=== PATIENT | female | born 1970 | race African-American/Black ===

== ENCOUNTER 2016-12-19 13:44 | Emergency (ER) | payer BC ==
[~2016-12-19] VITALS: Wt 90.0 kg
[~2016-12-19 13:44] MED LIST: AMIT25TA9 PO; BENA20TA48 PO; BENZ2TAB37 PO; GABA-528 PO; HAL5 PO; INSU100I17 SQ; LANT3I SC; QUET400T PO; SIMV40TA2 PO
[2016-12-19 13:53] VITALS: Wt 90.0 kg
[2016-12-19] MEDS ORDERED: GABAPENTIN 300 MG CAP PO ONE (16:00)
[2016-12-19] MEDS ORDERED: traMADol 50 MG TAB PO ONE (16:00)
[2016-12-19 16:03] LABS: ADD SCAN DIFF NO
[2016-12-19 16:16] LABS: BASOPHILS % 0.5 % (0.0-2.0); EOSINOPHILS # 0.1 10^3/ul (0.0-0.5); EOSINOPHILS % 0.6 % (0.0-7.0); HEMATOCRIT 46.5 % (37.0-47.0); HEMOGLOBIN 15.3 g/dl (12.0-16.0); LYMPHOCYTES # 3.3 10^3/ul (0.8-2.9); LYMPHOCYTES % 38.2 % (15.0-51.0); MEAN CORPUSCULAR HEMOGLOBIN 31.2 pg (29.0-33.0); MEAN CORPUSCULAR HGB CONC 32.9 g/dl (32.0-37.0); MEAN CORPUSCULAR VOLUME 94.9 fl (82.0-101.0); MEAN PLATELET VOLUME 11.8 fl (7.4-10.4); MONOCYTE # 0.4 10^3/ul (0.3-0.9); MONOCYTES % 4.1 % (0.0-11.0); NEUTROPHIL # 4.9 10^3/ul (1.6-7.5); NEUTROPHILS % 56.5 % (39.0-77.0); PLATELET COUNT 163 10^3/UL (140-415); RED CELL DISTRIBUTION WIDTH 12.2 % (11.5-14.5); WHITE BLOOD COUNT 8.6 10^3/ul (4.8-10.8)
[2016-12-19 16:20] LABS: ALBUMIN 4.3 g/dl (3.3-4.9); CHLORIDE 100 mmol/L (97-110)
[2016-12-19 16:21] LABS: POTASSIUM 4.3 mmol/L (3.5-5.1); SODIUM 141 mmol/L (135-144)
[2016-12-19 16:23] LABS: ANION GAP 22 (8-16); ASPARTATE AMINO TRANSFERASE 16 IU/L (15-46); BILIRUBIN,INDIRECT 0.3 mg/dl (0-1.1); BILIRUBIN,TOTAL 0.3 mg/dl (0.2-1.3); CARBON DIOXIDE 23 mmol/L (21-31); CREATININE 0.76 mg/dl (0.44-1.00)
[2016-12-19 16:24] LABS: ALANINE AMINOTRANSFERASE 15 IU/L (13-69); ALBUMIN/GLOBULIN RATIO 0.86; ALKALINE PHOSPHATASE 91 IU/L (42-121); BLOOD UREA NITROGEN 8 mg/dl (7-20); GLUCOSE 358 mg/dl (70-220); TOTAL PROTEIN 9.3 g/dl (6.1-8.1)
[2016-12-19 16:25] LABS: ACETAMINOPHEN < 10.0 ug/ml (10.0-30.0); ETHANOL < 10.0 mg/dl; SALICYLATE < 1.0 mg/dl (5.0-30.0)
[2016-12-19] MEDS ORDERED: ATOR40TA68 PO (16:33)
[2016-12-19] MEDS ORDERED: APIX5TAB PO (16:34)
[2016-12-19] MEDS ORDERED: AMIT25TA9 PO (16:35)
[2016-12-19] MEDS ORDERED: TRAM-40 PO (16:35)
[2016-12-19] MEDS ORDERED: ZIPR60CA6 PO (16:36)
[2016-12-19] MEDS ORDERED: HAL5 PO (17:44)
[2016-12-19] MEDS ORDERED: ZIPR80CA22 PO (17:44)
[2016-12-19] MEDS ORDERED: BENZ2TAB37 PO (17:45)
--- NOTE | 2016-12-19 17:49 | PSY ---
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 no plan no etoh History of present illness 46 yo disabled AAF with hx schizophrenia BIB sister c/o derogatory AH; pt adamantly denies any SI. She says, for some reason her pharmacy did not dispense her psych meds to her (Geodon, Haldol, cogentin) and pt started hearing vocies again. She has been off meds for a week. She denies Vh, admits to some paranoia, denies overt depression, denies HI, sleep is restless. Past psychiatric history last inpt was 5 years ago Hospitalization: Suicidal Attempt(s) Family History denies Medical history Problems Medical Problems: (1) Chest pain Status: Acute (2) Depression Status: Acute (3) Dermatitis Status: Acute (4) Dyspnea Status: Acute (5) Hypokalemia Status: Acute (6) Neuropathic pain Status: Acute (7) Tachycardia Status: Acute Allergies: Coded Allergies: codeine (Verified Allergy, Unknown, 12/19/16) penicillin (Verified Allergy, Unknown, hives, 12/19/16) Substance Abuse Substance use: No known substance abuse Social History Marital status: single Level of education: GED DPA/Conservatorship: No Occupation/Fdc: on ssi Psychiatric Objective Eval Physical Examination: Sleep: Insomnia Appetite: Adequate Energy: Adequate Interest: Adequate Mental Status Examination: Appearance: Groomed Eye Contact: Good Psychomotor Activity: Normal Behavior: Cooperative Speech: Clear AFFECT: Appropriate Mood: Anxious Though Process: Linear Thought Content: Hallucinations Suicidal: No Homicidal: No On 72 hour hold: No Orientation: x4 Cognition: Alert Insight: Intact Judgement: Intact Laboratory Results Laboratory Tests Test 12/19/16 15:50 Acetaminophen Level < 10.0ug/ml Alanine Aminotransferase (ALT/SGPT) 15IU/L Albumin 4.3g/dl Albumin/Globulin Ratio 0.86 Alkaline Phosphatase 91IU/L Anion Gap 22 Aspartate Amino Transf (AST/SGOT) 16IU/L Basophils # 0.010^3/ul Basophils % 0.5% Blood Urea Nitrogen 8mg/dl Calcium Level 10.0mg/dl Carbon Dioxide Level 23mmol/L Chloride Level 100mmol/L Creatinine 0.76mg/dl Direct Bilirubin 0.00mg/dl Eosinophils # 0.110^3/ul Eosinophils % 0.6% Ethyl Alcohol Level < 10.0mg/dl Globulin 5.00g/dl Glucose Level 358mg/dl Hematocrit 46.5% Hemoglobin 15.3g/dl Indirect Bilirubin 0.3mg/dl Lymphocytes # 3.310^3/ul Lymphocytes % 38.2% Mean Corpuscular Hemoglobin 31.2pg Mean Corpuscular Hemoglobin Concent 32.9g/dl Mean Corpuscular Volume 94.9fl Mean Platelet Volume 11.8fl Monocytes # 0.410^3/ul Monocytes % 4.1% Neutrophils # 4.910^3/ul Neutrophils % 56.5% Nucleated Red Blood Cells # 0.010^3/ul Nucleated Red Blood Cells % 0.0/100WBC Platelet Count 13735^3/UL Potassium Level 4.3mmol/L Red Blood Count 4.9010^6/ul Red Cell Distribution Width 12.2% Salicylates Level < 1.0mg/dl Sodium Level 141mmol/L Total Bilirubin 0.3mg/dl Total Protein 9.3g/dl White Blood Count 8.610^3/ul Assessment and Plan Assessment/Diagnosis Marshall I: chronic paranoid schizophrenia Marshall II: defered Marshall III: as per record Marshall IV: moderate Marshall V: gaf 45 Recommendation/Plan Medication Management To RN: Please kindly verify the doses or pt's meds at her pharmacy. D/W Dr Gipson : consider providing 3 days supply of pt's meds from hospital pharmacy. If not doses available, please provide Geodon 60 mg po bid, Haldol 10 mg poqhs and Cogentin 1 mg po tid. Please provide rx for 10 days supply as well. Psychotherapy defer to outpt Follow-up/Disposition no dts, dto, gd, pt can be discharged home. BLAS ZABALA MD Dec 19, 2016 17:49
[2016-12-19 18:08] LABS: BARBITURATES Negative (NEGATIVE); BENZODIAZEPINES Negative (NEGATIVE); CANNABINOIDS Negative (NEGATIVE); COCAINE Negative (NEGATIVE); OPIATES Negative (NEGATIVE)
[2016-12-19 18:09] VITALS: BP 123/87; PULSE 85; RESP 16
--- NOTE | 2016-12-19 19:41 | ERA ---
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 She does not have any plan, denies auditory, visual hallucination, homicidal or suicidal ideation. She denies neck pain, chest pain, dyspnea, abdominal pain, vomiting, dysuria, diarrhea. She smokes half a pack a day, denies drinking or using illicit drug Past medical history: History of PE and DVT and taking Eliquis, diabetes mellitus, dyslipidemia, anxiety, depression, schizophrenia Past surgical history: 2 ROS All systems reviewed and are negative except as per history of present illness. Medications Home Meds Active Scripts Benztropine Mesylate* (Benztropine Mesylate*) 2 Mg Tablet, 2 MG PO BID for 14 Days, TAB Prov:NELSON GORE MD 12/19/16 Haloperidol* (Haldol*) 5 Mg Tab, 5 MG PO BID for 14 Days, TAB Prov:NELSON GORE MD 12/19/16 Ziprasidone* (Geodon*) 80 Mg Capsule, 80 MG PO QHS, #14 CAP Prov:NELSON GORE MD 12/19/16 Reported Medications Ziprasidone* (Geodon*) 60 Mg Capsule, 60 MG PO QHS, CAP 12/19/16 Amitriptyline Hcl* (Amitriptyline Hcl*) 25 Mg Tablet, 25 MG PO QHS, #30 TAB 12/19/16 Tramadol Hcl* (Ultram*) 50 Mg Tablet, 50 MG PO Q6H Y for PAIN, TAB 12/19/16 Apixaban* (Eliquis*) 5 Mg Tablet, 5 MG PO BID, TAB 12/19/16 Atorvastatin* (Atorvastatin*) 40 Mg Tablet, 40 MG PO QHS, #30 TAB 12/19/16 Benztropine Mesylate* (Benztropine Mesylate*) 2 Mg Tablet, 2 MG PO BID, TAB 06/08/16 Haloperidol* (Haldol*) 5 Mg Tab, 5 MG PO BID, TAB 06/08/16 Gabapentin* (Gabapentin*) 800 Mg Tablet, 800 MG PO TID, #90 TAB 03/23/16 Insulin Glargine* (Lantus*) 100 Unit/Ml Soln, 25 UNIT SC QHS, #1 VIAL 03/22/16 Insulin Glulisine (Apidra Solostar) 100 Unit/1 Ml Insuln.pen, 10 UNIT SQ AC MEALS TID, #1 TUB 03/22/16 Discontinued Reported Medications Amitriptyline Hcl* (Amitriptyline Hcl*) 25 Mg Tablet, 25 MG PO QHS, #30 TAB 06/08/16 Simvastatin* (Zocor*) 40 Mg Tablet, 40 MG PO QHS, #30 TAB 06/08/16 Benazepril Hcl* (Benazepril Hcl*) 20 Mg Tablet, 20 MG PO DAILY, #30 TAB 06/08/16 Quetiapine Fumarate* (Seroquel*) 400 Mg Tablet, 400 MG PO HS, TAB 03/23/16 Allergies Allergies: Coded Allergies: codeine (Verified Allergy, Unknown, 12/19/16) penicillin (Verified Allergy, Unknown, hives, 12/19/16) PMhx/Soc History of Surgery: Yes ( SECTION X 2) Anesthesia Reaction: No Hx Neurological Disorder: Yes (NEUROPATHY) Hx Respiratory Disorders: No Hx Cardiac Disorders: Yes (HTN, HIGH CHOL.) Hx Psychiatric Problems: Yes (ANXIETY, DEPRESSION, SCHIZOPHRENIA) Hx Miscellaneous Medical Probl: No Hx Alcohol Use: Yes (OCCASSIONALLY) Hx Substance Use: No Hx Tobacco Use: Yes (1/2 PACK A DAY) Smoking Status: Current every day smoker Physical Exam Vitals Vital Signs Date Time Temp Pulse Resp B/P Pulse Ox O2 Delivery O2 Flow Rate FiO2 12/19/16 18:09 85 16 123/87 100 Room Air 12/19/16 15:21 90 16 132/95 100 Room Air 12/19/16 13:53 98.5 89 20 133/92 96 Physical Exam Const: No acute distress. Head: Atraumatic. Eyes: Normal Conjunctiva. ENT: Normal External Ears, Nose and Mouth. Neck: Full range of motion. No meningismus. Resp: Clear to auscultation bilaterally. Cardio: Regular rate and rhythm, no murmurs. Abd: Soft, non distended, normal bowel sounds, non tender. Skin: No petechiae or rashes. Back: No midline or flank tenderness. Ext: No cyanosis, or edema. Neur: Awake and alert. No focal deficit Psych: Normal Mood and Affect. Result Diagram: 12/19/16 1550 12/19/16 1550 Results 24 hrs Laboratory Tests Test 12/19/16 15:50 12/19/16 16:50 Acetaminophen Level < 10.0ug/ml Alanine Aminotransferase (ALT/SGPT) 15IU/L Albumin 4.3g/dl Albumin/Globulin Ratio 0.86 Alkaline Phosphatase 91IU/L Anion Gap 22 Aspartate Amino Transf (AST/SGOT) 16IU/L Basophils # 0.010^3/ul Basophils % 0.5% Blood Urea Nitrogen 8mg/dl Calcium Level 10.0mg/dl Carbon Dioxide Level 23mmol/L Chloride Level 100mmol/L Creatinine 0.76mg/dl Direct Bilirubin 0.00mg/dl Eosinophils # 0.110^3/ul Eosinophils % 0.6% Ethyl Alcohol Level < 10.0mg/dl Globulin 5.00g/dl Glucose Level 358mg/dl Hematocrit 46.5% Hemoglobin 15.3g/dl Indirect Bilirubin 0.3mg/dl Lymphocytes # 3.310^3/ul Lymphocytes % 38.2% Mean Corpuscular Hemoglobin 31.2pg Mean Corpuscular Hemoglobin Concent 32.9g/dl Mean Corpuscular Volume 94.9fl Mean Platelet Volume 11.8fl Monocytes # 0.410^3/ul Monocytes % 4.1% Neutrophils # 4.910^3/ul Neutrophils % 56.5% Nucleated Red Blood Cells # 0.010^3/ul Nucleated Red Blood Cells % 0.0/100WBC Platelet Count 77449^3/UL Potassium Level 4.3mmol/L Red Blood Count 4.9010^6/ul Red Cell Distribution Width 12.2% Salicylates Level < 1.0mg/dl Sodium Level 141mmol/L Total Bilirubin 0.3mg/dl Total Protein 9.3g/dl White Blood Count 8.610^3/ul Urine Amphetamines Screen Negative Urine Barbiturates Negative Urine Benzodiazepines Screen Negative Urine Cannabinoids Negative Urine Cocaine Screen Negative Urine Opiates Screen Negative Current Medications Medications (Trade) Dose Ordered Sig/Alfredo Route PRN Reason Start Time Stop Time Status Last Admin Dose Admin Tramadol HCl (Ultram) 50 mg ONCE ONCE PO 12/19/16 16:00 12/19/16 16:01 DC 12/19/16 15:48 Gabapentin (Neurontin) 300 mg ONCE ONCE PO 12/19/16 16:00 12/19/16 16:01 DC 12/19/16 15:54 Procedures/MDM MEDICAL MAKING DECISION: The patient is a 46-year-old female, present with acute suicidal ideation and chronic neuropathic pain. She was treated with tramadol 50 mg p.o. and Neurontin 300 mg p.o. for her chronic neuropathic pain with good response. The differential diagnoses considered include but are not limited to decompensated psychiatric illness, anxiety attack, panic attack Departure Diagnosis: Primary Impression: Schizophrenia Condition: Good Patient Instructions: Schizophrenia, General Additional Instructions: Consultation: She was even admitted by telepsychiatrist Dr Laguerre who recommended to discharge her with 2 weeks worth of her psychotropic medication. Call your primary care doctor TOMORROW for an appointment during the next 1-2 days.See the doctor sooner or return here if your condition worsens before your appointment time. I refill her medication for 2 weeks as recommended by the psychiatrist NELSON GORE MD Dec 19, 2016 19:41
== END 2016-12-19 18:32 | disposition home or self-care (01) ==
LOC: E/R 13:44
DX: F20.9 Schizophrenia, unspecified (principal); I10 Essential (primary) hypertension; F17.210 Nicotine dependence, cigarettes, uncomplicated; E11.9 Type 2 diabetes mellitus without complications; Z79.01 Long term (current) use of anticoagulants; Z79.4 Long term (current) use of insulin
CPT/HCPCS: 36415; 80053; 80306; 80307; 85025; Z7502; Z7610; 99284

== ENCOUNTER 2017-12-18 17:24 | Inpatient (IN) | END 2018-01-04 15:50 | disposition home or self-care (01) | DRG 881 ==

== ENCOUNTER 2019-04-11 14:40 | Emergency (ER) | payer BC ==
[~2019-04-11] VITALS: Ht 175.3 cm; Wt 75.0 kg
[~2019-04-11 14:40] MED LIST changes: -AMIT25TA9 PO; +APIX5TAB PO; +ATOR-2 PO; -BENA20TA48 PO; -BENZ2TAB37 PO; +FURO20TA3 PO; -HAL5 PO; +LITH300T PO; +MIRT45TA PO; +PALI6TAB3 PO; -QUET400T PO; -SIMV40TA2 PO; +TRAM50TA PO
[2019-04-11 14:49] VITALS: Ht 175.3 cm; Wt 75.0 kg
--- NOTE | 2019-04-11 14:50 | ERD ---
ER Documentation Chief Complaint Chief Complaint HPI 48-year-old woman brought in by EMS from psychiatrist's clinic after having a dizzy spell, near syncopal episode. Patient was meeting with her psychologist in her office and discussing sensitive issues when she felt dizzy. The episode was witnessed and there was no actual loss of consciousness. Patient was tearful at the scene there was no seizure activity, no head or neck injury, no complaints of chest pain or shortness of breath. Blood sugar was checked at the scene and was normal and patient was transported here without further complications. Patient denies suicidal homicidal ideation, no recent fevers or chills, no vomiting or diarrhea. ROS All systems reviewed and are negative except as per history of present illness. Medications Home Meds Active Scripts Mupirocin* (Bactroban*) 2% -22 Gram Oint...g., 1 APPLIC TOP BID for 7 Days, #30 GM Prov:ALEENA FRANCISCO MD 04/11/19 Furosemide* (Furosemide*) 20 Mg Tablet, 20 MG PO DAILY, #30 TAB Prov:ALEENA WAYNE 01/04/18 Atorvastatin* (Atorvastatin*) 80 Mg Tablet, 80 MG PO QHS, #30 TAB 2 Refills Prov:ALEENA WAYNE 01/04/18 Apison Carbonate (Apison Carbonate) 300 Mg Tablet.sa, 300 MG PO QHS for 30 Days Prov:ALEENA WAYNE 01/04/18 Reported Medications Paliperidone (Invega) 6 Mg Tab.er.24, 6 MG PO QAM, TAB 12/28/17 Mirtazapine* (Remeron*) 45 Mg Tablet, 45 MG PO HS, TAB 12/28/17 Tramadol Hcl* (Ultram*) 50 Mg Tablet, 50 MG PO Q6H PRN for PAIN, TAB 12/19/16 Apixaban* (Eliquis*) 5 Mg Tablet, 5 MG PO BID, TAB 12/19/16 Gabapentin* (Gabapentin*) 800 Mg Tablet, 800 MG PO TID, #90 TAB 03/23/16 Insulin Glargine* (Lantus*) 100 Unit/Ml Soln, 25 UNIT SC QHS, #1 VIAL 03/22/16 Insulin Glulisine (Apidra Solostar) 100 Unit/1 Ml Insuln.pen, 10 UNIT SQ AC MEALS TID, #1 TUB 03/22/16 Allergies Allergies: Coded Allergies: codeine (Verified Allergy, Unknown, 04/11/19) penicillin (Verified Allergy, Unknown, hives, 04/11/19) PMhx/Soc History of schizophrenia, diabetes mellitus with history of diabetic ketoacidosis, history of ARDS and pleural effusions, hyperlipidemia, anxiety, hypertension, prior saddle pulmonary embolism currently anticoagulated with apixaban History of Surgery: Yes (cesarian section x 2) Anesthesia Reaction: No Hx Neurological Disorder: No Hx Respiratory Disorders: No Hx Cardiac Disorders: Yes (HTN , High cholesterol) Hx Psychiatric Problems: Yes (Depression, Anxiety , Schizoprenia ) Hx Miscellaneous Medical Probl: Yes (See EMR for detail. ) Hx Alcohol Use: Yes Hx Tobacco Use: Yes FmHx Family History: diabetes Physical Exam Vitals Vital Signs Date Temp Pulse Resp B/P (MAP) Pulse Ox O2 O2 Flow FiO2 Time Delivery Rate 04/11/19 98.0 63 16 118/90 99 Room Air 16:03 (99) 04/11/19 98.0 85 16 131/82 99 Room Air 15:16 (98) 04/11/19 98.0 70 24 116/80 99 14:49 (92) Physical Exam Const: Patient is anxious and tearful, afebrile, nontoxic in appearance HEENT: Moist mucous membranes, pink conjunctive a, no cervical spine tenderness or deformity, normocephalic atraumatic Resp: Clear to auscultation bilaterally Cardio: Regular rate and rhythm, no murmurs Abd: Soft, non tender, non distended. No guarding or masses Skin: No petechiae or rashes, no contusions abrasions or lacerations noted Ext: No cyanosis, or edema, calves symmetrical Neur: Awake and alert x3, no focal deficits or facial asymmetry, pupils equal round reactive to light Psych: Appears anxious Results 24 hrs Laboratory Tests Test 04/11/19 15:05 04/11/19 15:15 04/11/19 15:41 Troponin I < 0.012 ng/ml Urine Color YELLOW Urine Clarity CLEAR Urine pH 5.0 Urine Specific [employer] 1.013 Urine Ketones NEGATIVE mg/dL Urine Nitrite NEGATIVE mg/dL Urine Bilirubin NEGATIVE mg/dL Urine Urobilinogen 1+ mg/dL Urine Leukocyte Esterase NEGATIVE Erinn/ul Urine Hemoglobin NEGATIVE mg/dL Urine Glucose 3+ mg/dL Urine Total Protein NEGATIVE mg/dl Bedside Glucose 127 mg/dL Current Medications Medications Dose Sig/Alfredo Start Time Status Last (Trade) Ordered Route PRN Stop Time Admin Dose Reason Admin Ketorolac 30 mg ONCE STAT 04/11/19 DC 04/11/19 Tromethamine IM 14:56 15:12 (Toradol) 04/11/19 14:57 Procedures/MDM Patient was placed on manager monitoring rhythm strip revealed a sinus rhythm at about 60 bpm. Patient's blood sugar was normal. EKG performed, read by me revealed a normal sinus rhythm at 61 bpm, left axis deviation, narrow QRS complex, no concerning ST elevations or depressions noted Sugar was normal, troponin was negative, urinalysis negative for infection. I treated the patient's body aches here with Toradol 30 mg IM x1. Differential diagnoses considered, included but not limited to acute coronary syndrome, pulmonary embolism, aortic dissection, abdominal aortic aneurysm, sepsis, stroke, meningitis, encephalitis, pneumonia, appendicitis, cholecystitis, bowel obstruction, pyelonephritis, nephrolithiasis, cystitis, as well as metabolic, hematologic, and electrolyte abnormalities. As well as abscess, cellulitis, fractures, and dislocations. Patient feels much better at this time, and vital signs are normal, symptoms have improved. I did give strict instructions to return to the ED if symptoms c ontinue or worsen, patient will otherwise follow-up with primary care physician. Patient understood instructions and agreed to plan. Disclaimer: Inadvertent spelling and grammatical errors are likely due to EHR/dictation software use and do not reflect on the overall quality of patient care. Also, please note that the electronic time recorded on this note does not necessarily reflect the actual time of the patient encounter. Departure Diagnosis: Primary Impression: Dizziness Condition: Good ALEENA FRANCISCO MD Apr 11, 2019 14:50
[2019-04-11] MEDS ORDERED: KETOROLAC 30 MG INJ IM STA (14:56)
[2019-04-11] MEDS ORDERED: MUPI22OI2 TOP (16:02)
[2019-04-11 16:03] VITALS: BP 118/90; PULSE 63; RESP 16
== END 2019-04-11 16:17 | disposition home or self-care (01) ==
LOC: E/R 14:40
DX: R42 Dizziness and giddiness (principal); I10 Essential (primary) hypertension; E11.9 Type 2 diabetes mellitus without complications; Z79.4 Long term (current) use of insulin; Z79.01 Long term (current) use of anticoagulants; Z87.891 Personal history of nicotine dependence
CPT/HCPCS: 81003; 82962; 84484; 96372; J1885; Z7502; 93005

== ENCOUNTER 2019-05-06 11:47 | Day surgery (SDC) | payer BC ==
[~2019-05-06] VITALS: Ht 175.3 cm; Wt 80.9 kg
[~2019-05-06 11:47] MED LIST changes: +MUPI22OI2 TOP
[2019-05-06 13:25] VITALS: Ht 175.3 cm; Wt 80.9 kg
[2019-05-06] MEDS ORDERED: LITHIUM (13:39)
[2019-05-06] MEDS ORDERED: FUROSEMIDE (13:39)
[2019-05-06] MEDS ORDERED: APIXABAN (13:39)
[2019-05-06] MEDS ORDERED: ATORVASTATIN (13:40)
[2019-05-06 13:59] VITALS: BP 116/75; PULSE 74; RESP 14
--- NOTE | 2019-05-06 14:29 | PREAC ---
Date/Time of Note Date/Time of Note DATE: 05/06/19 TIME: 14: Anesthesia Eval and Record Evaluation Time Pre-Procedure Interview DATE: 05/06/19 TIME: 14: Age 48 Sex female NPO: 8 hrs Preoperative diagnosis Weight Loss, and Screening Planned procedure EGD,& Colonoscopy Past Medical History Past Medical History: Includes Cardio: HTN, Dyslipidemia Endo: Diabetes Neuro: Other (Schitzophrenia) Heme: Other (Hx of DVT) Psych: Anxiety Surgery & Anesthesia Issues No known issue Meds Anticoagulation: No Beta Sujata within 24 hr: No Reason Beta Sujata not given: Pt. not on B-Sujata Active Scripts Furosemide* (Furosemide*) 20 Mg Tablet, 20 MG PO DAILY, #30 TAB Prov:ALEENA WAYNE 01/04/18 Atorvastatin* (Atorvastatin*) 80 Mg Tablet, 80 MG PO QHS, #30 TAB 2 Refills Prov:ALEENA WAYNE 01/04/18 Alder Carbonate (Alder Carbonate) 300 Mg Tablet.sa, 300 MG PO QHS for 30 Days Prov:ALEENA WAYNE 01/04/18 Reported Medications [Atorvastatin] No Conflict Check 05/06/19 [Alder] No Conflict Check 05/06/19 [Furosemide] No Conflict Check 05/06/19 Paliperidone (Invega) 6 Mg Tab.er.24, 6 MG PO QAM, TAB 12/28/17 Mirtazapine* (Remeron*) 45 Mg Tablet, 45 MG PO HS, TAB 12/28/17 Tramadol Hcl* (Ultram*) 50 Mg Tablet, 50 MG PO Q6H PRN for PAIN, TAB 12/19/16 Apixaban* (Eliquis*) 5 Mg Tablet, 5 MG PO BID, TAB 12/19/16 Gabapentin* (Gabapentin*) 800 Mg Tablet, 800 MG PO TID, #90 TAB 03/23/16 Insulin Glargine* (Lantus*) 100 Unit/Ml Soln, 25 UNIT SC QHS, #1 VIAL 03/22/16 Insulin Glulisine (Apidra Solostar) 100 Unit/1 Ml Insuln.pen, 10 UNIT SQ AC MEALS TID, #1 TUB 03/22/16 Discontinued Reported Medications [Apixaban] No Conflict Check 05/06/19 Discontinued Scripts Mupirocin* (Bactroban*) 2% -22 Gram Oint...g., 1 APPLIC TOP BID for 7 Days, #30 GM Prov:ALEENA FRANCISCO MD 04/11/19 Meds reviewed: Yes Allergies Coded Allergies: penicillin (Verified Allergy, Unknown, hives, 04/11/19) Allergies Reviewed: Yes Labs/Studies Labs Reviewed: Reviewed by anesthesiologist test: N/A Studies: ECG (n/a), CXR (n/a) Pre-procedure Exam Last vitals Vital Signs Date Temp Pulse Resp B/P (MAP) Pulse Ox O2 O2 Flow FiO2 Time Delivery Rate 05/06/19 97.5 74 14 116/75 99 Room Air 13:59 (89) Airway: Adequate mouth opening, Adequate thyromental dist Mallampati: Mallampati II Teeth: Normal Lung: Normal Heart: Normal ASA Physical Status ASA physical status: 3 Emergency: None Planned Anesthetic General/MAC: MAC Planned Pain Management Parenteral pain med Pre-operative Attestations Prior to commencing anesthesia and surgery, the patient was re-evaluated, there was verification of: *The patient's identity *The results of appropriate recent lab work and preoperative vital signs *The above evaluation not changing prior to induction *Anesthetic plan, risk benefits, alternative and complications discussed with patient/family; questions answered; patient/family understands, accepts and wishes to proceed. BASSEM FENTON MD May 06, 2019 14:29
[2019-05-06] MEDS ORDERED: PROPOFOL 60 ML ONE (15:00)
--- NOTE | 2019-05-06 15:01 | PAC ---
Date/Time of Note Date/Time of Note DATE: 05/06/19 TIME: 15:00 Post-Anesthesia Notes Post-Anesthesia Note Last documented vital signs Vital Signs Date Temp Pulse Resp B/P (MAP) Pulse Ox O2 O2 Flow FiO2 Time Delivery Rate 05/06/19 97.5 74 14 116/75 99 Room Air 15:00 (89) Activity: WNL Respiratory function: WNL Cardiovascular function: WNL Mental status: Baseline Pain reasonably controlled: Yes Hydration appropriate: Yes Nausea/Vomiting absent: Yes BASSEM FENTON MD May 06, 2019 15:01
[2019-05-06 15:29] VITALS: BP 111/76; RESP 20
== END 2019-05-06 19:23 | disposition home or self-care (01) ==
LOC: GIL 11:47
PROVIDERS: ATTEND Internal Medicine Gastroenterology
DX: Z12.11 Encounter for screening for malignant neoplasm of colon (principal); K64.8 Other hemorrhoids; R63.4 Abnormal weight loss; K20.8 Other esophagitis; I10 Essential (primary) hypertension; E11.9 Type 2 diabetes mellitus without complications; E78.5 Hyperlipidemia, unspecified; Z79.4 Long term (current) use of insulin; E78.00 Pure hypercholesterolemia, unspecified
CPT/HCPCS: 43239; 45378; 82962; 88305; 88312; 88313; Z7610